=== PATIENT | female | born 1980 | race American Indian/Alaskan Native ===

== ENCOUNTER 2017-12-05 08:25 | Emergency (ER) | payer SELFPAY ==
[2017-12-05 09:44] LABS: HCG Qualitative,Urine Negative (Negative)
[2017-12-05 09:45] LABS: Bilirubin,Urine NEG (Negative); Blood,Urine NEG (Negative); Color,Urine Red (Yellow); Protein,Urine <15 mg/dL mg/dL (Negative); Urobilinogen,Urine < 2.0 mg/dL (<2.0); WBC,Urine < 1.0 /HPF (0.0-6.0)
[2017-12-05 09:57] LABS: Basophils % (Auto) 0.6 % (0.0-1.8); Eosinophils # (Auto) 0.1 K/mm3 (0.0-0.4); Eosinophils % (Auto) 1.5 % (0.0-4.3); Hematocrit 42.7 % (30.3-42.9); Hemoglobin 14.4 gm/dl (10.1-14.3); Lymphocytes # (Auto) 2.1 K/mm3 (1.2-5.4); Lymphocytes % (Auto) 49.8 % (13.4-35.0); Mean Corpuscular HGB Conc 34 % (30-34); Mean Corpuscular Hemoglobin 29 pg (28-32); Mean Corpuscular Volume 86 fl (79-97); Monocytes # (Auto) 0.4 K/mm3 (0.0-0.8); Monocytes % (Auto) 9.1 % (0.0-7.3); Platelet Count 192 K/mm3 (140-440); Red Blood Count 4.98 M/mm3 (3.65-5.03); Red Cell Distribution Width 14.3 % (13.2-15.2)
[2017-12-05 10:54] LABS: Alanine Aminotransferase 19 units/L (7-56); Albumin 4.2 g/dL (3.9-5); BUN/Creatinine Ratio 16; Blood Urea Nitrogen 13 mg/dL (7-17); Calcium 8.9 mg/dL (8.4-10.2); Hemolysis Index 2; Lipase 44 units/L (13-60)
[2017-12-05] MEDS ORDERED: ASPIRIN PO ONE (23:51)
[2017-12-05] MEDS ORDERED: CATAPRES PO ONE (23:52)
[2017-12-06 01:39] LABS: BUN/Creatinine Ratio 15; Blood Urea Nitrogen 12 mg/dL (7-17); Calcium 8.7 mg/dL (8.4-10.2); Hemolysis Index 2
--- NOTE | 2017-12-06 09:50 | Cat Scan Report ---
CT ABDOMEN PELVIS WITHOUT CONTRAST: HISTORY: abdominal pain. COMPARISON: none. TECHNIQUE: Helical CT in 1.25mm intervals without IV contrast. Sagittal and coronal reconstructions. FINDINGS: Lung bases: Normal. Liver: Normal. Biliary system: Normal. Pancreas: Normal. Spleen: Normal. Kidneys/ureters/bladder: Normal. Adrenal glands: Normal. Aorta: Normal. Intestines: Normal. Appendix: Normal. Pelvic viscera: 3.8 cm right ovarian cyst is identified. The uterus and left adnexa are unremarkable. Ascites: None. Adenopathy: None. Musculoskeletal: Normal. IMPRESSION: 3.8 cm right ovarian cyst.
--- NOTE | 2017-12-06 10:35 | Emergency Department Report ---
ED General Adult HPI - General Chief complaint: Abdominal Pain Stated complaint: ABD PAIN Time Seen by Provider: 12/06/17 10:18 Source: patient Mode of arrival: Ambulatory Limitations: No Limitations - History of Present Illness Initial comments: This is a 37-year-old female that describes completely chronic and intermittent right lower quadrant pain. It is not associated with fever nausea vomiting diarrhea chills or difficulty in urinating. She says the pain comes and goes and that she had has had it for a long time. She does not have a chuck splitter. She is comfortable at the time of my encounter. She does not complain of bilateral flank pain or pain that radiates on voiding as the triage note indicates. She quite simply points to the right lower quadrant of her abdomen and pushes down on it deeply and states that's where the pain is. -: month(s) Location: abdomen, pelvis, right Severity scale (0 -10): 10 Quality: aching Consistency: intermittent Improves with: none Worsens with: none Treatments Prior to Arrival: none - Related Data Previous Rx's Medication Instructions Recorded Last Taken Type Amlodipine Besylate [Norvasc] 5 mg PO QDAY #30 tablet 12/06/17 Unknown Rx traMADol [Ultram] 50 mg PO Q6HR PRN #10 tablet 12/06/17 Unknown Rx Allergies Allergy/AdvReac Type Severity Reaction Status Date / Time No Known Allergies Allergy Unverified 12/05/17 09:09 ED Review of Systems ROS: Stated complaint: ABD PAIN Other details as noted in HPI Constitutional: denies: chills, fever Eyes: denies: eye pain, eye discharge, vision change ENT: denies: ear pain, throat pain Respiratory: denies: cough, shortness of breath, wheezing Cardiovascular: denies: chest pain, palpitations Endocrine: no symptoms reported Gastrointestinal: abdominal pain. denies: nausea, diarrhea Genitourinary: denies: urgency, dysuria, discharge Musculoskeletal: denies: back pain, joint swelling, arthralgia Skin: denies: rash, lesions Neurological: denies: headache, weakness, paresthesias Psychiatric: denies: anxiety, depression Hematological/Lymphatic: denies: easy bleeding, easy bruising ED Past Medical Hx - Past Medical History Previous Medical History?: Yes Additional medical history: vaginal delivery x 2 - Surgical History Past Surgical History?: No - Social History Smoking Status: Never Smoker Substance Use Type: None - Medications Home Medications: Home Medications Medication Instructions Recorded Confirmed Last Taken Type Amlodipine Besylate [Norvasc] 5 mg PO QDAY #30 tablet 12/06/17 Unknown Rx traMADol [Ultram] 50 mg PO Q6HR PRN #10 tablet 12/06/17 Unknown Rx ED Physical Exam - General Limitations: No Limitations General appearance: alert, in no apparent distress, other (completely comfortable appearance) - Head Head exam: Present: atraumatic, normocephalic - Eye Eye exam: Present: normal appearance, PERRL, EOMI. Absent: scleral icterus - ENT ENT exam: Present: mucous membranes moist - Neck Neck exam: Present: normal inspection - Respiratory Respiratory exam: Present: normal lung sounds bilaterally. Absent: respiratory distress - Cardiovascular Cardiovascular Exam: Present: regular rate, normal rhythm. Absent: systolic murmur, diastolic murmur, rubs, gallop - GI/Abdominal GI/Abdominal exam: Present: soft, tenderness (very minimal discomfort on deep right lower quadrant palpation only), normal bowel sounds. Absent: distended, guarding, rebound, rigid, organomegaly, mass, bruit, pulsatile mass, hernia - Extremities Exam Extremities exam: Present: normal inspection - Back Exam Back exam: Present: normal inspection - Neurological Exam Neurological exam: Present: alert, oriented X3, CN II-XII intact. Absent: motor sensory deficit - Psychiatric Psychiatric exam: Present: normal affect, normal mood - Skin Skin exam: Present: warm, dry, intact, normal color. Absent: rash ED Course Vital Signs 12/05/17 12/05/17 12/05/17 09:09 21:03 22:12 Temperature 98.3 F Pulse Rate 62 63 67 Respiratory 18 16 16 Rate Blood Pressure 173/113 Blood Pressure 176/123 151/103 [Left] O2 Sat by Pulse 100 100 Oximetry 12/05/17 12/06/17 12/06/17 22:53 00:04 06:47 Temperature 98.6 F Pulse Rate 67 67 73 Respiratory 16 16 Rate Blood Pressure 178/118 109/77 Blood Pressure 163/118 [Left] O2 Sat by Pulse 100 99 Oximetry - Reevaluation(s) Reevaluation #1: Patient was given clonidine and her blood pressure is now normal. I'm going to give her a prescription for amlodipine and referral to a chuck splitter or primary care clinic. 12/06/17 10:36 ED Medical Decision Making - Lab Data Result diagrams: 12/05/17 09:30 12/06/17 01:10 Laboratory Results - last 24 hr 12/05/17 12/06/17 12/06/17 09:30 01:10 05:58 Sodium 140 139 Potassium 4.1 3.5 L Chloride 102.6 101.2 Carbon Dioxide 25 27 Anion Gap 17 14 BUN 13 12 Creatinine 0.8 0.8 Estimated GFR > 60 > 60 BUN/Creatinine Ratio 16 15 Glucose 93 102 H Calcium 8.9 8.7 Total Bilirubin 0.30 AST 24 ALT 19 Alkaline Phosphatase 49 Troponin T < 0.010 < 0.010 Total Protein 7.3 Albumin 4.2 Albumin/Globulin Ratio 1.4 Lipase 44 - Radiology Data Radiology results: report reviewed interpreted by me: 3.8 cm right ovarian cyst no other abnormalities seen by radiologist on CT Critical care attestation.: If time is entered above; I have spent that time in minutes in the direct care of this critically ill patient, excluding procedure time. ED Disposition Clinical Impression: Right ovarian cyst, Essential hypertension Disposition: - TO HOME OR SELFCARE Is pt being admited?: No Does the pt Need Aspirin: No Condition: Stable Instructions: Abdominal Pain (ED), Hypertension (ED) Additional Instructions: Follow-up with primary care ([facility]) and gynecologists ([facility]) return any acute change or problem. Prescriptions: Amlodipine Besylate [Norvasc] 5 mg PO QDAY #30 tablet traMADol [Ultram] 50 mg PO Q6HR PRN #10 tablet PRN Reason: Pain Referrals: [facility] [Provider Group] - 3-5 Days WALTER PERAZA MD [Staff Physician] - 3-5 Days Time of Disposition: 10:38
[2017-12-06 11:46] VITALS: BP 147/95
== END 2017-12-06 11:40 | disposition home or self-care (01) ==
LOC: ED 08:25
DX: N83.201 Unspecified ovarian cyst, right side (principal); I10 Essential (primary) hypertension
CPT/HCPCS: 36415; 74176; 80048; 80053; 81001; 81025; 83690; 84484; 85025; 93005; 93010